=== PATIENT | male | born 1955 | race Caucasian/White ===

== ENCOUNTER 2016-11-16 00:30 | Emergency (ER) | payer MEDICARE ==
[~2016-11-16] VITALS: Ht 167.6 cm; Wt 78.0 kg
[~2016-11-16 00:30] MED LIST: AVPAK AZITHROM250 MG PO; BLOOD PRESSURE PO; CEPHALEXIN500 MG PO; FLEXERIL10 MG PO; KEFLEX 500MG.500 MG PO; NAPROSYN 500MG500 MG PO; NAPROSYN500 M1 PO; NOMEDS *; SULFAMETHOXAZOL1 TA6 PO; TRAMADOL 50MG T50 MG PO; [UNRECOGNIZED DRUG - REMARK] PO
--- NOTE | 2016-11-16 00:41 | Emergency Room Report ---
History of Present Illness Time Seen by [id number] Presenting Problem in Triage Pt arrived:Walked Presenting Problem:PATIENT REPORTS HE HAS PAIN BEHIND HIS RIGHT KNEE. REPORTS HE HAS HAD IT FOR 2 WEEKS. REPORTS HAS PAIN WHEN HE BENDS HIS KNEE UP. 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 N Clinical Suspician of Infection? N Mental Status: 1 - Regular (Normal Baseline) Sepsis Risk:Low Sepsis Risk Have you (or family members/close friends) recently traveled outside the [place]? N If Yes, where/when: Have you had exposure to infectious disease within the past month? TB? Other? Specify: Source patient, RN notes reviewed, family, old records Exam Limitations no limitations Comment over the last few days rt knee pain with flex and no trauma or fever Cardiac Chest Pain Chest pain indicative of cardiac No Timing/Duration this evening Severity moderate ALLERGIES Coded Allergies: NO KNOWN ALLERGIES (02/07/16) Home Medications Reported Medications No Known Home Medications History Medical History General CAD? No Angina: No [place]: No Hypertension? Yes Hyperlipidemia? No CHF? No DVT? No PE? No COPD? No Asthma? No Anemia? No GERD? No Gastric ulcers? No GI Bleed? No Hernia? Yes Thyroid Problems? No Hypothyroidism? No CVA? No Seizures? No Diabetes? No Renal Insuffiency? No End Stage Renal Disease? No UTI? No Stones? No GB Disease: No Nephritic Syndrome? No Asplenia? No Hepatitis? No Sickle Cell Disease? No Arthritis? Yes Migraines? No Cataracts? No Glaucoma? No MRSA? No HIV? No TB? No Anxiety? No Depression? No Cancer? No Immunization Hx DT/Tetanus 03/14/12 Flu REFUSES Pneumonia REFUSES Surgical Hx Previous Surgery?Y EAR SURGERIES HERNIA REPAIR Social History Smoking Hx Smoker: Never Smoker Tobacco: No Packs/day N/A Alcohol Alcohol: No Drugs none Review of Systems All Other Systems Reviewed and Negative Constitutional denies fever Eyes denies drainage ENT denies: ear pain, epistaxis, throat pain. Respiratory denies cough, denies shortness of breath, denies wheezing Cardiovascular denies chest pain, denies palpitations, denies syncope Gastrointestinal denies abdominal pain, denies diarrhea, denies vomiting Genitourinary denies: dysuria, frequency, hesitancy, hematuria. Musculoskeletal see HPI, denies back pain, joint pain, joint swelling, denies neck pain Skin denies rash Psychiatric/Neurological denies headache, denies seizure Physical Exam Vital Signs Vital Signs Date Time Temp Pulse Resp B/P Pulse O2 O2 Flow FiO2 Ox Delivery Rate 11/16 0036 97.8 69 20 141/94 96 - WBC >12,000 or <4,000 or 10% bands? 2 or more SIRS Criteria Met? B/P:141/94 MAP:109 Creatinine >2.0? UA output<0.5ml/kg/hr for 2 hrs? Platelet count >100,000? Lactate >2.0mmol/1? INR >1.2 or PTT > than 60 sec? Evidence of Organ Dysfunction? Provider documented clinical suspician of infection? N Sepsis Criteria Count: 1 Sepsis Risk: Low Sepsis Risk General Appearance no apparent distress Eye Exam - bilateral eye PERRL, bilateral eye EOMI Ear, Nose, Throat normal ENT inspection Neck supple Respiratory Status No: respiratory distress. 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 No Results/Orders Orders Procedure Date/time Status KNEE-3 VIEWS-RT 11/16 0041 Active XRAY/CT/US XRAY/CT/US XRAY knee XR interpretation by reviewed by me Xray Results no fracture seen, abnormal Departure Departure Time of Disposition 0100 Disposition DC Home or Self Care(routine) Clinical Impression Primary Impression: Knee pain, right Qualifiers: Chronicity: acute Qualified Code: M25.561 - Pain in right knee Condition STABLE Referrals Giselle PATHAK,Eduardo Kothari (Family) Patient Instructions DI for Knee Pain Additional Instructions use meds and see pcp for follow up with ortho Discharge Counseling Counseled pt/family regarding diagnosis, test results, medications/RX, follow up needs Prescriptions Current Visit Scripts Prednisone (Prednisone 20MG) 20 MG PO BID #10 TAB ED Critical Care Critical Care No at 0112
[2016-11-16] MEDS ORDERED: PREDNISONE 20MG20 MG PO (01:11)
[2016-11-16 01:25] VITALS: BP 141/94
--- NOTE | 2016-11-16 04:41 | RADIOLOGY REPORT PS360 ---
KNEE-3 VIEWS-RT HISTORY: Right knee pain PAIN ORDERING PHYSICIAN: Lucrecia Desai MD PATIENT AGE: 61 years COMPARISON: None FINDINGS: There are mild osteoarthritic changes involving the medial compartment and patellofemoral joint. Small suprapatellar effusion is suspected. Faint calcific densities are present in the intercondylar region consistent with loose bodies. No fracture or dislocation. No lytic or blastic change. IMPRESSION: Mild osteoarthritic change with knee joint effusion and loose bodies in the intercondylar region
== END 2016-11-16 01:26 | disposition home or self-care (01) ==
LOC: ER 00:30
DX: M25.561 Pain in right knee (principal); I10 Essential (primary) hypertension

== ENCOUNTER 2016-12-13 01:04 | Emergency (ER) | payer MEDICARE ==
[~2016-12-13] VITALS: Ht 167.6 cm; Wt 75.8 kg
[~2016-12-13 01:04] MED LIST changes: +PREDNISONE 20MG20 MG PO
--- NOTE | 2016-12-13 01:17 | Emergency Room Report ---
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 N Clinical Suspician of Infection? N Mental Status: 1 - Regular (Normal Baseline) Sepsis Risk:Low Sepsis Risk Have you (or family members/close friends) recently traveled outside the [place]? N If Yes, where/when: Have you had exposure to infectious disease within the past month? N TB? Other? Specify: Source patient, RN notes reviewed, old records Exam Limitations no limitations Comment rt shoulder pain with no def trauma and no fever or rash Cardiac Chest Pain Chest pain indicative of cardiac No Timing/Duration this evening Severity moderate ALLERGIES Coded Allergies: No Known Allergies (11/16/16) History Medical History General CAD? No Angina: No [place]: No Hypertension? Yes Hyperlipidemia? No CHF? No DVT? No PE? No COPD? No Asthma? No Anemia? No GERD? No Gastric ulcers? No GI Bleed? No Hernia? Yes Thyroid Problems? No Hypothyroidism? No CVA? No Seizures? No Diabetes? No Renal Insuffiency? No End Stage Renal Disease? No UTI? No Stones? No GB Disease: No Nephritic Syndrome? No Asplenia? No Hepatitis? No Sickle Cell Disease? No Arthritis? Yes Migraines? No Cataracts? No Glaucoma? No MRSA? No HIV? No TB? No Anxiety? No Depression? No Cancer? No Immunization Hx DT/Tetanus 03/14/12 Flu REFUSES Pneumonia REFUSES Surgical Hx Previous Surgery?Y EAR SURGERIES HERNIA REPAIR Social History Smoking Hx Smoker: Never Smoker Tobacco: No Packs/day N/A Alcohol Alcohol: No Drugs none Review of Systems All Other Systems Reviewed and Negative Constitutional denies fever Eyes denies drainage ENT denies: ear discharge, epistaxis, throat pain. Respiratory denies cough, denies shortness of breath, denies wheezing Cardiovascular denies chest pain, denies syncope Gastrointestinal denies abdominal pain, denies diarrhea, denies vomiting Genitourinary denies: dysuria, frequency, hesitancy, hematuria. Musculoskeletal see HPI, denies back pain, joint pain, denies joint swelling, denies neck pain Skin denies rash Psychiatric/Neurological denies headache, denies seizure Physical Exam Vital Signs Vital Signs Date Time Temp Pulse Resp B/P Pulse O2 O2 Flow FiO2 Ox Delivery Rate 12/13 0106 98.0 72 20 134/98 98 - WBC >12,000 or <4,000 or 10% bands? 2 or more SIRS Criteria Met? B/P:134/98 MAP:110 Creatinine >2.0? UA output<0.5ml/kg/hr for 2 hrs? Platelet count >100,000? Lactate >2.0mmol/1? INR >1.2 or PTT > than 60 sec? Evidence of Organ Dysfunction? Provider documented clinical suspician of infection? N Sepsis Criteria Count: 1 Sepsis Risk: Low Sepsis Risk General Appearance no apparent distress Eye Exam - bilateral eye PERRL, bilateral eye EOMI Ear, Nose, Throat normal ENT inspection Neck supple Respiratory Status No: respiratory distress. Cardiovascular regular rate/rhythm Peripheral Pulses Pulses normal Yes Extremities tender rt shoulder with neurovascular ok Strength 4 Upper Ext (L), 4 Upper Ext (R), 4 Lower Ext (L), 4 Lower Ext (R) Neurologic alert, receiving specialist II-XII nml as tested Reflexes Reflexes normal No Mental status normal mood/affect Skin intact Medical Decision Making LABS/Meds/Orders Pt receiving controlled substance in ED? No Results/Orders Orders Procedure Date/time Status [id number] VIEWS 12/13 0113 Active XRAY/CT/US XRAY/CT/US XRAY shoulder XR interpretation by reviewed by me Xray Results no fracture seen, abnormal Departure Departure Time of Disposition 0153 Disposition DC Home or Self Care(routine) Clinical Impression Primary Impression: Arthralgia of shoulder region, right Condition STABLE Referrals Eduardo Desai MD (Family) Patient Instructions DI for Joint Pain Additional Instructions use meds and pcp or ortho Discharge Counseling Counseled pt/family regarding diagnosis, test results, follow up needs Prescriptions Current Visit Scripts Prednisone (Prednisone 20MG) 20 MG PO BID #10 TAB ED Critical Care Critical Care No at 0155
--- NOTE | 2016-12-13 01:17 | Emergency Room Report ---
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 N Clinical Suspician of Infection? N Mental Status: 1 - Regular (Normal Baseline) Sepsis Risk:Low Sepsis Risk Have you (or family members/close friends) recently traveled outside the [place]? N If Yes, where/when: Have you had exposure to infectious disease within the past month? N TB? Other? Specify: Source patient, RN notes reviewed, old records Exam Limitations no limitations Comment rt shoulder pain with no def trauma and no fever or rash Cardiac Chest Pain Chest pain indicative of cardiac No Timing/Duration this evening Severity moderate ALLERGIES Coded Allergies: No Known Allergies (11/16/16) History Medical History General CAD? No Angina: No [place]: No Hypertension? Yes Hyperlipidemia? No CHF? No DVT? No PE? No COPD? No Asthma? No Anemia? No GERD? No Gastric ulcers? No GI Bleed? No Hernia? Yes Thyroid Problems? No Hypothyroidism? No CVA? No Seizures? No Diabetes? No Renal Insuffiency? No End Stage Renal Disease? No UTI? No Stones? No GB Disease: No Nephritic Syndrome? No Asplenia? No Hepatitis? No Sickle Cell Disease? No Arthritis? Yes Migraines? No Cataracts? No Glaucoma? No MRSA? No HIV? No TB? No Anxiety? No Depression? No Cancer? No Immunization Hx DT/Tetanus 03/14/12 Flu REFUSES Pneumonia REFUSES Surgical Hx Previous Surgery?Y EAR SURGERIES HERNIA REPAIR Social History Smoking Hx Smoker: Never Smoker Tobacco: No Packs/day N/A Alcohol Alcohol: No Drugs none Review of Systems All Other Systems Reviewed and Negative Constitutional denies fever Eyes denies drainage ENT denies: ear discharge, epistaxis, throat pain. Respiratory denies cough, denies shortness of breath, denies wheezing Cardiovascular denies chest pain, denies syncope Gastrointestinal denies abdominal pain, denies diarrhea, denies vomiting Genitourinary denies: dysuria, frequency, hesitancy, hematuria. Musculoskeletal see HPI, denies back pain, joint pain, denies joint swelling, denies neck pain Skin denies rash Psychiatric/Neurological denies headache, denies seizure Physical Exam Vital Signs Vital Signs Date Time Temp Pulse Resp B/P Pulse O2 O2 Flow FiO2 Ox Delivery Rate 12/13 0106 98.0 72 20 134/98 98 - WBC >12,000 or <4,000 or 10% bands? 2 or more SIRS Criteria Met? B/P:134/98 MAP:110 Creatinine >2.0? UA output<0.5ml/kg/hr for 2 hrs? Platelet count >100,000? Lactate >2.0mmol/1? INR >1.2 or PTT > than 60 sec? Evidence of Organ Dysfunction? Provider documented clinical suspician of infection? N Sepsis Criteria Count: 1 Sepsis Risk: Low Sepsis Risk General Appearance no apparent distress Eye Exam - bilateral eye PERRL, bilateral eye EOMI Ear, Nose, Throat normal ENT inspection Neck supple Respiratory Status No: respiratory distress. 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 No Results/Orders Orders Procedure Date/time Status [id number] VIEWS 12/13 0113 Active XRAY/CT/US XRAY/CT/US XRAY shoulder XR interpretation by reviewed by me Xray Results no fracture seen, abnormal Departure Departure Time of Disposition 0153 Disposition DC Home or Self Care(routine) Clinical Impression Primary Impression: Arthralgia of shoulder region, right Condition STABLE Referrals Eduardo Desai MD (Family) Patient Instructions DI for Joint Pain Additional Instructions use meds and pcp or ortho Discharge Counseling Counseled pt/family regarding diagnosis, test results, follow up needs Prescriptions Current Visit Scripts Prednisone (Prednisone 20MG) 20 MG PO BID #10 TAB ED Critical Care Critical Care No at 0155
[2016-12-13] MEDS ORDERED: PREDNISONE 20MG20 MG PO (01:54)
[2016-12-13 02:03] VITALS: BP 134/98
--- NOTE | 2016-12-13 05:35 | RADIOLOGY REPORT PS360 ---
[id number] VIEWS HISTORY: C/O RIGHT SHOULDER PAIN X 4 WEEKS ORDERING PHYSICIAN: Lucrecia Desai MD PATIENT AGE: 61 years COMPARISON: None FINDINGS: No acute fracture or dislocation. No lytic or blastic change. Mild osteoarthritic changes are present at the acromioclavicular joint. There are bony hypertrophic changes of the distal aspect of the clavicle with a lucency oriented transversely along the distal clavicle. This however was present on an older chest x-ray of 02/07/2016 and may represent an old fracture. No acute fracture or dislocation The glenohumeral joint is unremarkable IMPRESSION: IMPRESSION: 1. No acute finding. 2. Chronic changes of the distal clavicle which may be due to old fracture with mild osteoarthritic changes of the AC joint
== END 2016-12-13 02:07 | disposition home or self-care (01) ==
LOC: ER 01:04
DX: M25.511 Pain in right shoulder (principal); I10 Essential (primary) hypertension